=== PATIENT | female | born 1980 | race African-American/Black ===

== ENCOUNTER 2021-11-02 11:02 | Emergency (ER) | payer MEDICARE, MEDICAID ==
[~2021-11-02] VITALS: Ht 157.5 cm; Wt 75.0 kg
[2021-11-02 12:45] LABS: CHLORIDE 106 mEq/L (98-107)
[2021-11-02 12:45] LABS: CLARITY URINE CLEAR (CLEAR); COLOR URINE YELLOW (YELLOW); KETONES URINE NEGATIVE (NEGATIVE); LEUKOCYTE ESTERASE URINE NEGATIVE (NEGATIVE); NITRITE URINE NEGATIVE (NEGATIVE); OCCULT BLOOD URINE TRACE (NEGATIVE); PH URINE 6.5 (4.5-8.0); PROTEIN URINE NEGATIVE (NEGATIVE); SPECIFIC GRAVITY URINE 1.015 (1.005-1.030)
[2021-11-02 12:47] LABS: BASOPHILS % 0.5 % (0.0-2.0); EOSINOPHILS % 3.6 % (0.0-5.0); HEMATOCRIT. 39.9 % (36.0-48.0); HEMOGLOBIN. 12.8 g/dL (12.0-16.0); LYMPHOCYTES % 32.2 % (20.0-50.0); MEAN CORPUSCULAR HEMOGLOBIN 27.7 pg (28.0-32.0); MEAN CORPUSCULAR VOLUME 86.5 fL (81.0-99.0); MEAN PLATELET VOLUME 8.3 fl (7.4-10.4); MONOCYTES % 6.6 % (2.0-8.0); NEUTROPHILS % 57.1 % (40.0-76.0); PLATELET 239 x1000/uL (130-400); RED BLOOD CELL COUNT 4.61 mill/uL (4.2-5.4); RED CELL DISTRIBUTION WIDTH 13.6 % (11.6-14.6)
[2021-11-02] MEDS ORDERED: KETOROLAC 60MG/2ML VIAL IM STA (14:24)
[2021-11-02 14:57] VITALS: BP 107/52
[2021-11-02] MEDS ORDERED: NAPR-681 PO (15:20)
[2021-11-02] MEDS ORDERED: CYCL5TAB PO (15:20)
== END 2021-11-02 15:26 | disposition home or self-care (01) ==
LOC: ER 11:44
DX: R07.89 Other chest pain (principal); M94.0 Chondrocostal junction syndrome [Tietze]; R07.9 Chest pain, unspecified; F32.9 Major depressive disorder, single episode, unspecified; I11.9 Hypertensive heart disease without heart failure; I38 Endocarditis, valve unspecified
CPT/HCPCS: 36415; 71045; 80053; 81003; 81025; 83880; 84484; 85025; 96372; 99284; J1885

== ENCOUNTER 2022-04-01 11:46 | Emergency (ER) | payer MEDICARE, MEDICAID ==
[~2022-04-01] VITALS: Ht 160 cm; Wt 91.0 kg
[~2022-04-01 11:46] MED LIST: CYCL5TAB PO; NAPR-681 PO
[2022-04-01] MEDS ORDERED: HYDROCODONE/ACETAMINOPHEN 5/325MG TABLET PO STA (12:29)
[2022-04-01 13:22] LABS: BASOPHILS % 0.5 % (0.0-2.0); EOSINOPHILS % 3.3 % (0.0-5.0); HEMATOCRIT. 36.4 % (36.0-48.0); HEMOGLOBIN. 11.8 g/dL (12.0-16.0); LYMPHOCYTES % 21.4 % (20.0-50.0); MEAN CORPUSCULAR HEMOGLOBIN 27.5 pg (28.0-32.0); MEAN CORPUSCULAR VOLUME 84.7 fL (81.0-99.0); MEAN PLATELET VOLUME 8.1 fl (7.4-10.4); MONOCYTES % 7.1 % (2.0-8.0); NEUTROPHILS % 67.7 % (40.0-76.0); PLATELET 291 x1000/uL (130-400); RED CELL DISTRIBUTION WIDTH 13.9 % (11.6-14.6)
[2022-04-01 13:32] LABS: CHLORIDE 107 mEq/L (98-107); PROTHROMBIN TIME 10.5 sec (9.6-11.0)
[2022-04-01 17:56] VITALS: BP 109/86
== END 2022-04-01 18:01 | disposition home or self-care (01) ==
LOC: ER 11:46
DX: M25.561 Pain in right knee (principal); D64.9 Anemia, unspecified; F32.9 Major depressive disorder, single episode, unspecified; I11.9 Hypertensive heart disease without heart failure; E78.00 Pure hypercholesterolemia, unspecified; Z90.49 Acquired absence of other specified parts of digestive tract; Z98.890 Other specified postprocedural states
CPT/HCPCS: 36415; 73562; 80053; 83880; 85025; 93005; 93923; 93971; 99285

== ENCOUNTER 2022-11-26 06:03 | Emergency (ER) | payer MEDICARE, MEDICAID ==
[~2022-11-26] VITALS: Ht 154.9 cm; Wt 68.0 kg
[2022-11-26 06:12] VITALS: O2SAT 100
[2022-11-26] MEDS ORDERED: KETOROLAC 60MG/2ML VIAL IM STA (08:19)
[2022-11-26] MEDS ORDERED: ONDANSETRON 4MG ODT PO STA (08:30)
[2022-11-26 08:53] LABS: CLARITY URINE TURBID (CLEAR); COLOR URINE DARK YELLOW (YELLOW); GLUCOSE URINE NEGATIVE (NEGATIVE); KETONES URINE TRACE (NEGATIVE); LEUKOCYTE ESTERASE URINE NEGATIVE (NEGATIVE); NITRITE URINE NEGATIVE (NEGATIVE); OCCULT BLOOD URINE 3+ (NEGATIVE); PROTEIN URINE 1+ (NEGATIVE); SPECIFIC GRAVITY URINE 1.029 (1.005-1.030)
[2022-11-26 09:15] LABS: RBC URINE 25-50 /hpf (0-2); SQUAMOUS EPITHELIAL CELL URINE 2+ /lpf (RARE/1+); YEAST URINE NONE SEEN
[2022-11-26 09:16] LABS: AMORPHOUS SEDIMENT URINE 4+ /lpf; BACTERIA URINE 1+; WBC URINE 0-2 /hpf (0-2)
[2022-11-26 10:38] LABS: HEMOGLOBIN. 12.6 g/dL (12.0-16.0); MEAN CORPUSCULAR HEMOGLOBIN 27.2 pg (28.0-32.0); MEAN CORPUSCULAR HGB CONC 32.4 g/dL (31.0-37.0); MEAN PLATELET VOLUME 8.6 fl (7.4-10.4); PLATELET 204 x1000/uL (130-400); RED BLOOD CELL COUNT 4.64 mill/uL (4.2-5.4); RED CELL DISTRIBUTION WIDTH 13.2 % (11.6-14.6); WHITE BLOOD COUNT 14.8 x1000/uL (4.5-11.0)
[2022-11-26 10:40] LABS: DIFFERENTIAL COMMENT 1
[2022-11-26 10:48] LABS: CHLORIDE 109 mEq/L (98-107); INDEX HEMOLYSI 1 (1-3); INDEX ICTERIC 1 (1-4); INDEX LIPEMIC 1 (1-3); POTASSIUM 3.6 mEq/L (3.5-5.1); SODIUM 140 mEq/L (136-145)
[2022-11-26 10:55] LABS: ALANINE AMINOTRANSFERASE 20 IU/L (13-61); ALBUMIN 3.8 g/dL (3.4-5.0); ASPARTATE AMINOTRANSFERASE 17 IU/L (15-37); BILIRUBIN TOTAL 0.7 mg/dL (0.1-1.0); CALCIUM 8.5 mg/dL (8.5-10.1); CARBON DIOXIDE 27 mEq/L (21-32); CREATININE 0.9 mg/dL (0.6-1.3); GLUCOSE 93 mg/dL (70-105); PROTEIN TOTAL 7.9 g/dL (6.0-8.3); UREA NITROGEN BLOOD 13 mg/dL (7-21)
[2022-11-26] MEDS ORDERED: ONDA4TAB50 MT (11:14)
[2022-11-26] MEDS ORDERED: TAMS-11 MT (11:14)
[2022-11-26] MEDS ORDERED: NAPR220C61 MT (11:14)
[2022-11-26 11:30] LABS: PLATELET ESTIMATE NORMAL
[2022-11-26 12:21] VITALS: BP 136/78; PULSE 89; RESP 16; TEMP 98.5
== END 2022-11-26 12:28 | disposition home or self-care (01) ==
LOC: ER 06:03
DX: N20.0 Calculus of kidney (principal); F32.A Depression, unspecified; I11.9 Hypertensive heart disease without heart failure; E78.00 Pure hypercholesterolemia, unspecified; Z90.49 Acquired absence of other specified parts of digestive tract
CPT/HCPCS: 99285; 74176; 80053; 81003; 81025; 83690; 85025; 36415; 96372; Q0162; J1885

== ENCOUNTER 2024-09-06 13:38 | Emergency (ER) | payer MEDICARE, MEDICAID ==
[~2024-09-06] VITALS: Ht 154.9 cm; Wt 73.0 kg
[~2024-09-06 13:38] MED LIST changes: -CYCL5TAB PO; +CYCL5TAB3 PO; +NAPR220C61 MT; +ONDA4TAB50 MT; +TAMS-54 MT
[2024-09-06 13:52] VITALS: O2SAT 100
[2024-09-06 17:08] LABS: INFLUENZA TYPE A Presumptive Negative (Pres. Neg.)
[2024-09-06 17:09] LABS: INFLUENZA TYPE B Presumptive Negative (Pres. Neg.)
[2024-09-06] MEDS ORDERED: IBUP-2029 MT (17:33)
[2024-09-06] MEDS ORDERED: NIRM1TAB8 PO (17:33)
[2024-09-06 18:00] VITALS: TEMP 38.3; O2SAT 100
[2024-09-06 18:11] VITALS: BP 135/100; PULSE 111; RESP 16
[2024-09-06] MEDS: IBUPROFEN 600MG TABLET PO ONE (18:11)
== END 2024-09-06 18:35 | disposition home or self-care (01) ==
LOC: ER 13:38
DX: U07.1 COVID-19 (principal); E78.00 Pure hypercholesterolemia, unspecified; I51.9 Heart disease, unspecified; I10 Essential (primary) hypertension; Z79.899 Other long term (current) drug therapy; Z98.890 Other specified postprocedural states; Z90.49 Acquired absence of other specified parts of digestive tract
CPT/HCPCS: 71045; 81025; 87426; 87804; 99284